=== PATIENT | male | born 1970 | race Asian ===

== ENCOUNTER → 2024-03-07 | Outpatient (CLI) | payer OTHER ==
[2024-03-08 09:07] LABS: VARICELLA ZOSTER IGG AB TITER Reactive (Non Reactive)
[2024-03-08 11:07] LABS: MUMPS VIRUS IGG ANTIBODY 27.8 AU/mL (Immune >10.9); RUBEOLA (MEASLES) IGG 19.5 AU/mL (Immune >16.4)
== END | disposition home or self-care (01) ==
LOC: LABMN 14:52
PROVIDERS: ATTEND Internal Medicine
DX: Z02.1 Encounter for pre-employment examination (principal)
CPT/HCPCS: 86706; 86735; 86762; 86765; 86787